=== PATIENT | male | born 1980 | race American Indian/Alaskan Native ===

== ENCOUNTER 2018-06-30 22:52 | Inpatient (IN) | payer OTHER ==
--- NOTE | 2018-06-30 23:06 | ED PDOC ---
Psych Transfer Clearance - Clearance Statement Clearance Statement: Reviewed vital signs. Lab results and transfer papers reviewed on previous shift by Dr Penaloza, who cleared pt for transfer. Patient clinically stable for psychiatric admission.
[2018-06-30] MEDS ORDERED: Magnesium Hydroxide Susp 30 ml UD PO PRN (23:56)
[2018-06-30] MEDS ORDERED: Alum-Mag Hydrox-Simethicone Susp (30 mL) PO PRN (23:56)
[2018-06-30] MEDS ORDERED: DiphenhydrAMINE 50 mg/ml Inj IM PRN (23:56)
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
[2018-07-01 06:56] LABS: BASO % 0.9 % (0.0-2.0); EOS # 0.1 K/uL (0.0-0.7); EOS % 3.5 % (0.0-4.0); HEMOGLOBIN 11.7 g/dL (12.0-18.0); LYMPH # 1.2 K/uL (1.0-4.3); LYMPH % 44.6 % (20.0-40.0); MEAN CELL VOLUME 75.5 fl (80.0-94.0); MEAN CORPUSCULAR HEMOGLOBIN 23.8 pg (27.0-31.0); MEAN CORPUSCULAR HGB CONC 31.5 g/dL (33.0-37.0); MEAN PLATELET VOLUME 8.3 fl (7.2-11.7); MONO # 0.3 K/uL (0.0-0.8); NRBC % 0.1 % (0.0-0.0); RBC 4.93 Mil/uL (4.40-5.90); RED CELL DISTRIBUTION WIDTH 15.5 % (11.5-14.5); WHITE BLOOD COUNT 2.7 K/uL (4.8-10.8)
[2018-07-01 07:06] LABS: ALB/GLOB RATIO 1.1 (1.0-2.1); ALBUMIN 3.5 g/dL (3.5-5.0); ALT/SGPT 27 U/L (21-72); AST/SGOT 19 U/L (17-59); BLOOD UREA NITROGEN 13 mg/dl (9-20); GFR NON-AFRICAN AMERICAN > 60; HDL CHOLESTEROL 37 MG/DL (30-70)
[2018-07-01 07:19] LABS: LDL CHOLESTEROL 87 mg/dL (0-129)
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
[2018-07-02 06:43] LABS: IRON 83 ug/dL (49-181)
[2018-07-02 06:52] LABS: % IRON SATURATION 29 % (20-55); TOTAL IRON BINDING CAPACITY 287 ug/dL (250-450)
--- NOTE | 2018-07-02 09:56 | PCM.PYCHPN ---
Psychiatric Progress Note - Psychiatric Progress Note Patient seen today, length of contact: Pt evaluated, case discussed w/ team, chart reviewed Patient Chief Complaint: Suicidal ideation/ auditory hallucinations Problems Identified/Issues Discussed: Patient reports that he continues to feel irritable. He reports continued CAH to kill himself. He is able to contract for safety at this time, but reports that it is difficult for him not to react to these voices. He is currently calm and cooperative. No adverse effects to Abilify reported. Medication Change: Yes (Increase Abilify tomorrow AM) Medical Record Reviewed: Yes Consults ordered or reviewed: Medicine consult, Physical Therapy Mental Status Examination - Cognitive Function Orientation: Person, Place, Situation, Time Decription of patient's judgement and insights: Fair I/J - Mood Mood: Depressed - Affect Affect: Constricted - Speech Speech: Soft - Formal Thought Process Formal Thought Process: Hallucinations, Loosening of associations Psychotic Thoughts and Behaviors: +CAH - Suicidal Ideation Suicidal Ideation: Yes Plan: +CAH to kill himself; no current plan or intent - Homicidal Ideation Homicidal Ideation: No Goal/Treatment Plan - Goal/Treatment Plan Need for Continued Stay: Remain at risks for inpatient hospitalization, Severe depression anxiety Progress Toward Problem(s) and Goals/Treatment Plan: Schizophrenia -Continue Abilify; will titrate tomorrow -Individual and group therapy -Physical Therapy -Medicine consult -Disposition planning
[2018-07-02 12:05] LABS: SQUAMOUS EPITHIAL < 1 /hpf (0-5); URINE BILIRUBIN NEGATIVE (NEGATIVE); URINE BLOOD NEGATIVE (NEGATIVE); URINE CLARITY SLIGHTY-CLOUDY (Clear); URINE COLOR YELLOW (YELLOW); URINE GLUCOSE (UA) NEG (NEGATIVE); URINE LEUKOCYTE ESTERASE NEG Leu/uL (Negative); URINE PROTEIN NEGATIVE (NEGATIVE)
--- NOTE | 2018-07-03 08:30 | PCM.PYCHPN ---
Psychiatric Progress Note - Psychiatric Progress Note Patient seen today, length of contact: Pt evaluated, case discussed w/ team, chart reviewed Patient Chief Complaint: Suicidal ideation/ auditory hallucinations Problems Identified/Issues Discussed: Patient reports that he continues to hear intermittent AH and CAH to kill himself. He states that he does not want to act on these voices and denies current plan/intent. He continues to report mood lability. He is currently calm and cooperative. No adverse effects to Abilify reported. We discussed continued titration of Abilify today. Medication Change: Yes (Increase Abilify) Medical Record Reviewed: Yes Consults ordered or reviewed: Medicine consult, Physical Therapy Mental Status Examination - Cognitive Function Orientation: Person, Place, Situation, Time Decription of patient's judgement and insights: Fair I/J - Mood Mood: Depressed - Affect Affect: Constricted - Speech Speech: Soft - Formal Thought Process Formal Thought Process: Hallucinations, Loosening of associations Psychotic Thoughts and Behaviors: +CAH - Suicidal Ideation Suicidal Ideation: Yes - Homicidal Ideation Homicidal Ideation: No Goal/Treatment Plan - Goal/Treatment Plan Need for Continued Stay: Remain at risks for inpatient hospitalization, Severe depression anxiety Progress Toward Problem(s) and Goals/Treatment Plan: Schizophrenia; r/o Schizoaffective Disorder -Increase Abilify -Individual and group therapy -Physical Therapy -Medicine consult -Disposition planning
[2018-07-03 12:10] VITALS: BMI 24.3
--- NOTE | 2018-07-04 11:43 | PCM.PYCHPN ---
Psychiatric Progress Note - Psychiatric Progress Note Patient seen today, length of contact: Pt evaluated, case discussed w/ team, chart reviewed Patient Chief Complaint: pt has remained labile and still having hallucinations but compliant with meds . Medication Change: Yes (Increase Abilify) Medical Record Reviewed: Yes Mental Status Examination - Cognitive Function Orientation: Person, Place, Situation, Time - Mood Mood: Depressed - Affect Affect: Constricted - Speech Speech: Soft - Formal Thought Process Formal Thought Process: Hallucinations, Loosening of associations - Suicidal Ideation Suicidal Ideation: Yes - Homicidal Ideation Homicidal Ideation: No Goal/Treatment Plan - Goal/Treatment Plan Need for Continued Stay: Remain at risks for inpatient hospitalization, Severe depression anxiety Progress Toward Problem(s) and Goals/Treatment Plan: will increase abilify to 20 mg daily to stabilize the psychosis and mood and engage pt in therapy.
[2018-07-05 05:57] VITALS: O2SAT 96
--- NOTE | 2018-07-05 14:31 | PCM.PYCHPN ---
Psychiatric Progress Note - Psychiatric Progress Note Patient seen today, length of contact: Pt evaluated, case discussed w/ team, chart reviewed Patient Chief Complaint: pt still hears voices but denies suicidal ideation.pt has remained labile and still having hallucinations but compliant with meds . Medication Change: Yes (Increase Abilify) Medical Record Reviewed: Yes Mental Status Examination - Cognitive Function Orientation: Person, Place, Situation, Time - Mood Mood: Depressed - Affect Affect: Constricted - Speech Speech: Soft - Formal Thought Process Formal Thought Process: Hallucinations, Loosening of associations - Suicidal Ideation Suicidal Ideation: Yes - Homicidal Ideation Homicidal Ideation: No Goal/Treatment Plan - Goal/Treatment Plan Need for Continued Stay: Remain at risks for inpatient hospitalization, Severe depression anxiety Progress Toward Problem(s) and Goals/Treatment Plan: will increase abilify to 20 mg daily to stabilize the psychosis and mood and engage pt in therapy.
--- NOTE | 2018-07-06 16:11 | PCM.PYCHPN ---
Psychiatric Progress Note - Psychiatric Progress Note Patient seen today, length of contact: Pt evaluated, case discussed w/ team, chart reviewed Patient Chief Complaint: reports feeling nervous reports seeing a tall woman than reviews what he does but is not actively being told to what to do reports is commentary. pt reported "little chest pain" pt was seen by family services specialist at bedside ekg was ordered. staff report that pt. is noted to get out of bed able to get self to rest room. is adherent with medications Problems Identified/Issues Discussed: alteration in mood alteration in cognition Medical Problems: pt seen by director global medical affairs Diagnostic Results: per medicine per psychiatry per nursing per social work per recreational therapy Medication Change: No Medical Record Reviewed: Yes Consults ordered or reviewed: pt seen by director global medical affairs Mental Status Examination - Cognitive Function Orientation: Person, Place, Situation, Time - Mood Mood: Depressed - Affect Affect: Constricted - Speech Speech: Soft - Formal Thought Process Formal Thought Process: Hallucinations, Loosening of associations - Suicidal Ideation Suicidal Ideation: Yes Plan: pt able to contract for safety - Homicidal Ideation Homicidal Ideation: No Goal/Treatment Plan - Goal/Treatment Plan Need for Continued Stay: Remain at risks for inpatient hospitalization, Severe depression anxiety Progress Toward Problem(s) and Goals/Treatment Plan: inpt milieu vital signs and clinical observation per protocol and per clinical status pt seen by director global medical affairs/ekg pending discharge planning in progress Estimated Date of D/C: 07/09/18 - Smoking Cessation Smoking Cessation Initiated: Yes
--- NOTE | 2018-07-06 16:26 | CP.PCM.PN ---
<Isabel Gonzalez - Last Filed: 07/06/18 18:34> Subjective - Date & Time of Evaluation Date of Evaluation: 07/06/18 Time of Evaluation: 15:36 - Subjective Subjective: 37 y/o M was seen and evaluated because of complaints of non-radiating chest pain x 2 days, sharp in nature, 9.5/10, not exacerbated by deep breathing. Chest pain is not accompanied by sob, cough, fever, chills. Objective - Vital Signs/Intake and Output Vital Signs (last 24 hours): Temp Pulse Resp BP Pulse Ox 98.6 F 74 20 119/69 96 07/06/18 16:00 07/06/18 16:00 07/06/18 16:00 07/06/18 16:00 07/05/18 05:56 - Medications Medications: Current Medications Acetaminophen (Tylenol 325mg Tab) 650 mg PO Q4 PRN PRN Reason: 4-7 pain Al Hydrox/Mg Hydrox/Simethicone (Maalox Plus 30 Ml) 30 ml PO Q4 PRN PRN Reason: Dyspepsia Aripiprazole (Abilify) 15 mg PO DAILY [facility] Last Admin: 07/06/18 09:20 Dose: 15 mg Diphenhydramine HCl (Benadryl) 50 mg IM Q6 PRN PRN Reason: Extrapyramidal S/S Unable PO Diphenhydramine HCl (Benadryl) 50 mg PO Q6 PRN PRN Reason: Extrapyramidal Symptoms Diphenhydramine HCl (Benadryl) 50 mg PO HS PRN PRN Reason: Sleep Haloperidol (Haldol) 5 mg PO Q4 PRN PRN Reason: Agitation Haloperidol Lactate (Haldol) 5 mg IM Q4 PRN PRN Reason: Agitation, Unable to Take PO Lorazepam (Ativan) 2 mg IM Q6 PRN PRN Reason: Anxiety/Agitation,Unable PO Lorazepam (Ativan) 1 mg PO Q8 PRN PRN Reason: Anxiety/Agitation Last Admin: 07/01/18 16:37 Dose: 1 mg Magnesium Hydroxide (Milk Of Magnesia) 30 ml PO HS PRN PRN Reason: Constipation Nicotine (Nicoderm Cq) 1 patch TD DAILY [facility] Last Admin: 07/06/18 09:20 Dose: 1 patch - Labs Labs: 07/01/18 06:48 04/10/19 06:48 - Constitutional Appears: Unkempt - Head Exam Head Exam: ATRAUMATIC Additional comments: no facial grimacing - Eye Exam Pupil Exam: PERRL - ENT Exam ENT Exam: Mucous Membranes Moist - Respiratory Exam Respiratory Exam: Clear to Ausculation Bilateral, NORMAL BREATHING PATTERN. absent: Respiratory Distress - Cardiovascular Exam Cardiovascular Exam: REGULAR RHYTHM, +S1, +S2 Additional comments: left sided chest point tenderness - GI/Abdominal Exam GI & Abdominal Exam: Soft. absent: Guarding, Rigid, Tenderness, Normal Bowel Sounds - Extremities Exam Extremities Exam: absent: Calf Tenderness - Neurological Exam Neurological Exam: Alert, Awake, Oriented x3 - Psychiatric Exam Psychiatric exam: Depressed - Skin Skin Exam: Dry Assessment and Plan - Assessment and Plan (Free Text) Assessment: 37 y/o M admitted to psychiatric unit for psychosis was seen and evaluated becau se of chest pain. -chest pain likely not cardiac in nature because of presence of point tenderness -first troponin is neg; follow up second troponin & ekg -naprosyn ordered prn chest pain -continue to monitor vs <Ciara Guaman - Last Filed: 07/07/18 07:23> Objective - Vital Signs/Intake and Output Vital Signs (last 24 hours): Temp Pulse Resp BP Pulse Ox 98.1 F 91 H 18 113/65 96 07/07/18 05:54 07/07/18 05:54 07/07/18 05:54 07/07/18 05:54 07/05/18 05:56 - Medications Medications: Current Medications Acetaminophen (Tylenol 325mg Tab) 650 mg PO Q4 PRN PRN Reason: 4-7 pain Al Hydrox/Mg Hydrox/Simethicone (Maalox Plus 30 Ml) 30 ml PO Q4 PRN PRN Reason: Dyspepsia Aripiprazole (Abilify) 15 mg PO DAILY [facility] Last Admin: 07/06/18 09:20 Dose: 15 mg Diphenhydramine HCl (Benadryl) 50 mg IM Q6 PRN PRN Reason: Extrapyramidal S/S Unable PO Diphenhydramine HCl (Benadryl) 50 mg PO Q6 PRN PRN Reason: Extrapyramidal Symptoms Diphenhydramine HCl (Benadryl) 50 mg PO HS PRN PRN Reason: Sleep Haloperidol (Haldol) 5 mg PO Q4 PRN PRN Reason: Agitation Haloperidol Lactate (Haldol) 5 mg IM Q4 PRN PRN Reason: Agitation, Unable to Take PO Lorazepam (Ativan) 2 mg IM Q6 PRN PRN Reason: Anxiety/Agitation,Unable PO Lorazepam (Ativan) 1 mg PO Q8 PRN PRN Reason: Anxiety/Agitation Last Admin: 07/01/18 16:37 Dose: 1 mg Magnesium Hydroxide (Milk Of Magnesia) 30 ml PO HS PRN PRN Reason: Constipation Naproxen (Naproxen) 500 mg PO Q12 PRN PRN Reason: Pain, Mild (1-3) Nicotine (Nicoderm Cq) 1 patch TD DAILY [facility] Last Admin: 07/06/18 09:20 Dose: 1 patch - Labs Labs: 07/01/18 06:48 07/01/18 06:48 Attending/Attestation - Attestation I have personally seen and examined this patient.: Yes I have fully participated in the care of the patient.: Yes I have reviewed all pertinent clinical information, including history, physical exam and plan: Yes Notes (Text): 07/07/18 07:23 Findings and plan as above
[2018-07-06] MEDS ORDERED: Naproxen 500 MG TAB PO PRN (18:32)
--- NOTE | 2018-07-07 17:02 | PCM.PYCHPN ---
Psychiatric Progress Note - Psychiatric Progress Note Patient seen today, length of contact: Pt evaluated, case discussed w/ team, chart reviewed Patient Chief Complaint: pt seen laying in bed, reports doing okay, denies chest pain-pt being followed by medicine. pt adherent with treatment. remains in room per staff. Problems Identified/Issues Discussed: alteration in mood alteration in cognition Medical Problems: pt seen by medical writer Diagnostic Results: per medicine per psychiatry per nursing per social work per recreational therapy DSM 5 Symptoms Update: alteration in cognition mood Medication Change: No Medical Record Reviewed: Yes Consults ordered or reviewed: pt being seen by medical team Mental Status Examination - Cognitive Function Orientation: Person, Place, Situation, Time Attention: Poor Concentration: Poor Association: Loose Fund of Knowledge: Poor Decription of patient's judgement and insights: impaired - Mood Mood: Depressed - Affect Affect: Constricted - Speech Speech: Soft - Formal Thought Process Formal Thought Process: Hallucinations, Loosening of associations - Suicidal Ideation Suicidal Ideation: Yes - Homicidal Ideation Homicidal Ideation: No Goal/Treatment Plan - Goal/Treatment Plan Need for Continued Stay: Remain at risks for inpatient hospitalization, Severe depression anxiety Progress Toward Problem(s) and Goals/Treatment Plan: inpt milieu vital signs and clinical observation per protocol and per clinical status pt seen by medical writer/related to hx of reported of chest pain 07/06 and 07/07 less than 0.0120 discharge planning in progress Estimated Date of D/C: 07/09/18 - Smoking Cessation Smoking Cessation Initiated: Yes
--- NOTE | 2018-07-07 21:13 | CARD ---
APPROVED REPORT Date of service: 07/06/2018 EKG Measurement Heart [id number] <Conclusion> Normal sinus rhythm Normal ECG
--- NOTE | 2018-07-08 17:35 | PCM.PYCHPN ---
Psychiatric Progress Note - Psychiatric Progress Note Patient seen today, length of contact: Pt evaluated, case discussed w/ team, chart reviewed Patient Chief Complaint: pt seen seated by nursing station later in room. reports doing staff report pt is doing well, sleeping and eating well per pt, no side effects medication. admits that current combination working. Problems Identified/Issues Discussed: alteration in mood improving alteration in cognition improving Medical Problems: pt seen by biomedical field service engineer Diagnostic Results: per medicine per psychiatry per nursing per social work per recreational therapy DSM 5 Symptoms Update: improving cognition and mood Medication Change: No Medical Record Reviewed: Yes Consults ordered or reviewed: pt seen by hospitalist Mental Status Examination - Cognitive Function Orientation: Person, Place, Situation, Time Attention: Poor Concentration: Poor Association: Loose Fund of Knowledge: Poor Decription of patient's judgement and insights: impaired - Mood Mood: Depressed - Affect Affect: Constricted - Speech Speech: Soft - Formal Thought Process Formal Thought Process: Hallucinations, Loosening of associations - Suicidal Ideation Suicidal Ideation: Yes - Homicidal Ideation Homicidal Ideation: No Goal/Treatment Plan - Goal/Treatment Plan Need for Continued Stay: Remain at risks for inpatient hospitalization, Severe depression anxiety Progress Toward Problem(s) and Goals/Treatment Plan: inpt milieu vital signs and clinical observation per protocol and per clinical status pt seen by biomedical field service engineer/related to hx of reported of chest pain 07/06 and 07/07 less than 0.0120 discharge planning in progress Estimated Date of D/C: 07/09/18 - Smoking Cessation Smoking Cessation Initiated: No Reason for not providing: defers
[2018-07-09 05:45] VITALS: BP 117/73; PULSE 64; RESP 18; TEMP 97.2
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
== END 2018-07-09 17:47 | disposition home or self-care (01) | DRG 430 ==
LOC: H.ER 22:52 → H.ERHOLD 23:07 → H.PSYCH 23:18 → H.STEP 23:45
PROVIDERS: ADMIT Psychiatry & Neurology Psychiatry; ATTEND Psychiatry & Neurology Psychiatry
PROC: GZHZZZZ Group Psychotherapy (ICD-10-PCS; principal; 2018-06-30)
PROC: GZ58ZZZ Individual Psychotherapy, Cognitive-Behavioral (ICD-10-PCS; 2018-06-30)
DX: F20.9 Schizophrenia, unspecified (principal); F32.9 Major depressive disorder, single episode, unspecified; R45.851 Suicidal ideations; F12.90 Cannabis use, unspecified, uncomplicated; F41.9 Anxiety disorder, unspecified; D50.9 Iron deficiency anemia, unspecified; F17.210 Nicotine dependence, cigarettes, uncomplicated; H54.8 Legal blindness, as defined in USA